=== PATIENT | male | born 1970 | race Caucasian/White ===

== ENCOUNTER 2018-12-11 14:09 | Emergency (ER) | payer BC ==
[~2018-12-11] VITALS: Ht 185.4 cm; Wt 95.3 kg
[2018-12-11] MEDS ORDERED: WELLBUTRIN XL150 MG PO (14:24)
[2018-12-11 14:45] LABS: ABSOLUTE EOSINOPHILS 0.1 thou/uL (0.0-0.7); ABSOLUTE LYMPHOCYTES 1.3 thou/uL (0.8-5.3); ABSOLUTE MONOCYTES 0.4 thou/uL (0.0-1.2); ABSOLUTE NEUTROPHILS 3.9 thou/uL (1.6-8.1); BASOPHILS 0.7 %; HEMATOCRIT 43.2 % (42.0-52.0); HEMOGLOBIN 15.1 gm/dL (14.0-18.0); LYMPHOCYTES 22.7 %; MCH 29.6 pg (26.0-34.0); MCHC 34.9 g/dL (28.0-37.0); MCV 84.9 fL (80.0-100.0); MONOCYTES 6.8 %; MPV 7.7 fl. (7.2-11.1); NUCLEATED RBCS 0 /100WBC; PLATELET COUNT* 249 thou/uL (150-400); POLYS 68.8 %; RBC 5.09 mil/uL (4.50-6.00); RDW-CV 13.2 % (10.5-14.5); WBC 5.7 thou/uL (4.0-11.0)
[2018-12-11 14:51] LABS: ANION GAP 9 mmol/L (7-16); BUN 25 mg/dL (7-18); CHLORIDE 104 mmol/L (98-107); CO2 29 mmol/L (21-32); CREATININE 1.1 mg/dL (0.6-1.3); GLUCOSE 106 mg/dL (70-99); SODIUM 142 mmol/L (136-145)
[2018-12-11 15:00] LABS: ALBUMIN 3.9 g/dL (3.4-5.0); ALKALINE PHOSPHATASE 90 U/L (46-116); SGOT 15 U/L (15-37); SGPT 25 U/L (30-65); TOTAL BILIRUBIN 0.7 mg/dL (<0.1-1.0); TOTAL PROTEIN 7.6 g/dL (6.4-8.2); TROPONIN-I LEVEL <0.06 ng/mL (<0.06)
[2018-12-11 16:33] VITALS: BP 122/89
--- NOTE | 2018-12-12 11:40 | EKG ---
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 : 1970 Requested By: Horacio Vann Order Number: [id number] MD: Brady Barnett Measurements Intervals [place] Rate: 80 P: 0 SD: 179 QRS: 78 QRSD: 101 T: 24 QT: 354 QTc: 409 Interpretive Statements Sinus rhythm RSR' in V1 or V2, right VCD or RVH No previous ECG available for comparison Electronically Signed On 12-12-2018 11:40:14 CDT by Brady Barnett [email or web address] <ELECTRONICALLY SIGNED> By: Brady Barnett MD, [facility] 12/12/18 1140 1428 1428 Brady Barnett MD, FACC /EPI
== END 2018-12-11 16:34 | disposition home or self-care (01) ==
LOC: M.ERS 14:09
PROVIDERS: Nurse Practitioner Family
DX: R20.2 Paresthesia of skin (principal); Z91.041 Radiographic dye allergy status

== ENCOUNTER 2021-03-10 15:42 | Emergency (ER) | payer BC ==
[~2021-03-10] VITALS: Ht 182.9 cm; Wt 99.8 kg
[~2021-03-10 15:42] MED LIST: WELLBUTRIN XL150 MG PO
[2021-03-10 17:45] VITALS: BP 125/89
== END 2021-03-10 17:46 | disposition home or self-care (01) ==
LOC: M.ERS 15:42
DX: U07.1 COVID-19 (principal); Z88.8 Allergy status to other drugs, medicaments and biological substances